=== PATIENT | female | born 1940 | race Hispanic/Latino ===

== ENCOUNTER 2017-02-10 02:33 | Observation (INO) | payer MEDICARE ==
[2017-02-10] MEDS ORDERED: Sodium Chloride 0.9% 1,000 ML IV SCH (03:15)
[2017-02-10 03:27] LABS: BASO % 0.5 % (0.0-2.0); EOS % 0.3 % (0.0-4.0); HEMATOCRIT 50.5 % (34.0-47.0); LYMPH # 1.7 K/uL (1.0-4.3); LYMPH % 25.2 % (20.0-40.0); MEAN CELL VOLUME 84.3 fl (81.0-99.0); MEAN CORPUSCULAR HEMOGLOBIN 27.3 pg (27.0-31.0); MEAN CORPUSCULAR HGB CONC 32.4 g/dL (33.0-37.0); MEAN PLATELET VOLUME 10.9 fl (7.2-11.7); MONO # 1.1 K/uL (0.0-0.8); MONO % 16.7 % (0.0-10.0); NEUT # 3.9 K/uL (1.8-7.0); NEUT % 57.3 % (50.0-75.0); NRBC % 0.3 % (0.0-0.0); RED CELL DISTRIBUTION WIDTH 15.9 % (11.5-14.5); WHITE BLOOD COUNT 6.9 K/uL (4.8-10.8)
[2017-02-10 03:34] LABS: BLOOD UREA NITROGEN 19 mg/dl (7-17); CALCIUM 8.8 mg/dL (8.4-10.2); CARBON DIOXIDE 23 mmol/L (22-30); CHLORIDE 103 mmol/L (98-107); GFR AFRICAN-AMERICAN > 60; GLUCOSE,RANDOM 110 mg/dL (65-105); SODIUM 142 mmol/l (132-148)
--- NOTE | 2017-02-10 03:39 | ED PDOC ---
HPI: General Adult Time Seen by Provider: 02/10/17 02:43 Chief Complaint (Nursing): Cough, Cold, Congestion Chief Complaint (Provider): cough, body aches, diarrhea History Per: Patient History/Exam Limitations: no limitations Onset/Duration Of Symptoms: Days Have you had recent travel within the past 21 days to any of the following countries: [place], [place], [place] or [place]?: No Current Symptoms Are (Timing): Still Present Additional Complaint(s): 76yo female presents to the ED, brought by daughter, with multiple symptoms including dry cough, body aches, and diarrhea. Patient reports dry cough began a couple days ago with body aches for a few days. Notes she has hx of fibromyalgia and aches in shoulder and back are consistent with this. Patient states when she coughs she subsequently has diarrhea and has had over 10 episodes. Reports feeling dehydrated as well. Denies n/v, fevers, chills. States she has smoked 2 packs of cigarettes per day for the past 60 years and has not seen her PCP in 15 years. Past Medical History Reviewed: Historical Data, Nursing Documentation, Vital Signs Vital Signs: Last Vital Signs Temp 98.1 F 02/10/17 06:37 Pulse 89 02/10/17 06:37 Resp 20 02/10/17 06:37 BP 137/56 L 02/10/17 06:37 Pulse Ox 100 02/10/17 06:37 - Medical History PMH: Fibromyalgia - Surgical History Surgical History: Cholecystectomy - Family History Family History: States: No Known Family Hx - Social History Current smoker - smoking cessation education provided: Yes - Home Medications Home Medications: Ambulatory Orders Medication Instructions Recorded No Known Home Med 02/10/17 - Allergies Allergies/Adverse Reactions: Allergies Allergy/AdvReac Type Severity Reaction Status Date / Time ibuprofen Allergy RASH Verified 02/10/17 02:44 Review of Systems ROS Statement: Except As Marked, All Systems Reviewed And Found Negative Constitutional: Positive for: Other (body aches, dehydration ). Negative for: Fever, Chills Respiratory: Positive for: Cough Gastrointestinal: Positive for: Diarrhea. Negative for: Nausea, Vomiting Physical Exam - Reviewed Nursing Documentation Reviewed: Yes Vital Signs Reviewed: Yes - Physical Exam Appears: Positive for: Well, No Acute Distress Head Exam: Positive for: ATRAUMATIC, NORMAL INSPECTION, NORMOCEPHALIC Skin: Positive for: Normal Color, Warm, Dry Eye Exam: Positive for: Normal appearance, EOMI, PERRL ENT: Positive for: Normal ENT Inspection Neck: Positive for: Normal, Painless ROM, Supple Cardiovascular/Chest: Positive for: Regular Rate, Rhythm. Negative for: Murmur , Tachycardia Respiratory: Positive for: Decreased Breath Sounds (mild b/l ). Negative for: Wheezing, Respiratory Distress Gastrointestinal/Abdominal: Positive for: Normal Exam, Bowel Sounds, Soft. Negative for: Tenderness Back: Positive for: Normal Inspection. Negative for: L CVA Tenderness, R CVA Tenderness Extremity: Positive for: Normal ROM. Negative for: Deformity, Swelling Neurologic/Psych: Positive for: Alert, Oriented - Laboratory Results Result Diagrams: 02/10/17 03:23 02/10/17 03:23 - ECG O2 Sat by Pulse Oximetry: 100 Pulse Ox Interpretation: Normal (RA) Medical Decision Making Medical Decision Makin: Impression: pneumonia vs. bronchitis with possible dehydration Plan: BNP, BMP, troponin, CBC Urinalysis CXR Morphine 2mg IVP, IVF reassess 0634: Patient remains persistently hypoxic despite multiple nebulizer treatments. Patient also flu positive. Will admit for hypoxia and wait for CT angio chest results prior to admission. Scribe Attestation: Documented by Joselyn Gupta acting as a scribe for Leno Estevez MD. Provider Scribe Attestation: All medical record entries made by the Scribe were at my direction and personally dictated by me. I have reviewed the chart and agree that the record accurately reflects my personal performance of the history, physical exam, medical decision making, and the department course for this patient. I have also personally directed, reviewed, and agree with the discharge instructions and disposition. Disposition - Clinical Impression Clinical Impression: Hypoxia - Patient ED Disposition Is Patient to be Admitted: Yes - Disposition Disposition Time: 06:34 Condition: STABLE - Pt Status Changed To: Hospital Disposition Of: Observation - POA Present On Arrival: None
[2017-02-10] MEDS ORDERED: Albuterol-Ipratrop 3 mg / 0.5 (3 ml) UD INH STA ×2 (04:04→04:48)
[2017-02-10] MEDS ORDERED: Albuterol-Ipratrop 3 mg / 0.5 (3 ml) UD ONE (04:42)
[2017-02-10 05:42] LABS: VENOUS BLOOD GAS BASE EXCESS -16.2 mmol/L (0.0-2.0); VENOUS BLOOD GAS PCO2 105 mmHg (40-60); VENOUS BLOOD PH 6.87 (7.32-7.43)
[2017-02-10 05:57] LABS: ABG ALLEN TEST YES; ARTERIAL BLOOD GAS HCO3 22.5 mmol/L (21-28); ARTERIAL BLOOD GAS MODE 2L NC; ARTERIAL BLOOD GAS PO2 64 mm/Hg (80-100)
[2017-02-10] MEDS ORDERED: Iodixanol 320 MG/ML 100 ML BOTTLE IV ONE (05:59)
[2017-02-10] MEDS ORDERED: Sodium Chloride 0.9% 50 ML IV ONE (05:59)
--- NOTE | 2017-02-10 06:57 | CT ---
EXAM: CT Angiography Chest With Intravenous Contrast CLINICAL HISTORY: 76 years old, female; Signs and symptoms; Other: Hypoxia; Additional info: Hypoxic, smoker, R/O pe TECHNIQUE: Axial computed tomographic angiography images of the chest with intravenous contrast using pulmonary embolism protocol. MIP reconstructed images were created and reviewed. Coronal and sagittal reformatted images were created and reviewed. CONTRAST: 95 mL of [id number] administered intravenously. EXAM DATE/TIME: 02/10/2017 5:42 AM COMPARISON: CR - CHEST TWO VIEWS (PA/LAT) 02/10/2017 3:45:25 AM FINDINGS: Pulmonary arteries: No evidence of pulmonary embolism. Aorta: No thoracic aortic aneurysm or dissection. Lungs: 9.5 mm noncalcified subpleural nodule is anterior segment left lower lobe. Sub-solid 4 mm nodule anterior segment right lower lobe (one image 57, sagittal 49 and axial 86) Pleural space: Unremarkable. No significant effusion. No pneumothorax. Heart: Unremarkable. No cardiomegaly. No significant pericardial effusion. No evidence of RV dysfunction. Bones/joints: No acute fracture. Soft tissues: Unremarkable. Lymph nodes: Few AP window, lower mediastinal and bilateral hilar nodes averaging 1 cm. IMPRESSION: 1. No evidence of pulmonary embolism. 2. Noncalcified 9.5 mm nodule left lower lobe and sub-solid nodule of 4 mm right to lower lobe. Fleischner Society guidelines for lung nodules greater than 8-mm: 3, 9, and 24 months follow-up or PET/CT.
--- NOTE | 2017-02-10 08:21 | RAD ---
HISTORY: cough, smoker COMPARISON: No prior. TECHNIQUE: Chest PA and lateral FINDINGS: LUNGS: No active pulmonary disease. Suspicious for 6-7 millimeter nodule at the left lower lung. PLEURA: No significant pleural effusion identified. No pneumothorax apparent. CARDIOVASCULAR: Normal. OSSEOUS STRUCTURES: No significant abnormalities. VISUALIZED UPPER ABDOMEN: Normal. OTHER FINDINGS: None. IMPRESSION: No radiographic evidence of acute pulmonary disease. Suspicious for 7 millimeter nodule at the left lower lung.
[2017-02-10] MEDS ORDERED: Enoxaparin 40 mg Syringe SC SCH (09:00)
[2017-02-10] MEDS ORDERED: Pneumococcal 23-Valent Vaccine IM ONE (11:37)
[2017-02-10] MEDS ORDERED: Albuterol-Ipratrop 3 mg / 0.5 (3 ml) UD INH SCH (12:00)
[2017-02-10 12:53] VITALS: BP 126/72; PULSE 73; RESP 18; TEMP 98.5; O2SAT 92
--- NOTE | 2017-02-10 16:04 | CP.PCM.HP ---
History of Present Illness - History of Present Illness History of Present Illness: CC: Cough. 76 y/o F, came to ER [facility] to be evaluated for cough, onset 5 days [employer] with no relief. Pt was evaluated in ED due to progressive Dry cough associated to heavy smoker ( 2PPD x 60 yrs), Pt stated she quit a week ago 2nd to SOB. Worsening symptoms : Body ache, increasing pain with cough, moderate 7:10, multiple episodes of diarrhea that started day [employer], feeling dehydrated. Aggravated factor: SOB on exertion, not following with PMD x 15 years. Pt denied: Bloody cough, productive cough, fever, chills, n/v, dizziness, CP, urinary symptoms, sick contact, recent travel. PMHx: Fibromyalgia, chronic shoulders and back pain On eval in ER, Pt found + for Flu B. CT Chest: No PE. Noncalcified nodule LLL, sub-solid nodule RLL. Present on Admission - Present on Admission Any Indicators Present on Admission: No Review of Systems - Constitutional Constitutional: Other (negative) - EENT Eyes: Requires Corrective Lenses Ears: Other (negative) Nose/Mouth/Throat: Other (negative) - Cardiovascular Cardiovascular: Other (negative) - Respiratory Respiratory: Cough, Dyspnea on Exertion - Gastrointestinal Gastrointestinal: Diarrhea - Genitourinary Genitourinary: Other (negative) - Musculoskeletal Musculoskeletal: Arthralgias - Integumentary Integumentary: Other (negative) - Neurological Neurological: Other (negative) - Psychiatric Psychiatric: Other (negative) - Endocrine Endocrine: Other (negative) - Hematologic/Lymphatic Hematologic: Other (negative) Past Patient History - Past Medical History & Family History Past Medical History?: Yes Pertinent Family History: Unknown - Past Social History Smoking Status: Heavy Smoker > 10 Cigarettes Daily Alcohol: None Drugs: Denies Home Situation {Lives}: With Family - CARDIAC Hx Cardiac Disorders: No - PULMONARY Hx Respiratory Disorders: Yes - NEUROLOGICAL Hx Neurological Disorder: No - HEENT Hx HEENT Problems: No - RENAL Hx Chronic Kidney Disease: No - ENDOCRINE/METABOLIC Hx Endocrine Disorders: No - HEMATOLOGICAL/ONCOLOGICAL Hx Blood Disorders: No - INTEGUMENTARY Hx Dermatological Problems: No - MUSCULOSKELETAL/RHEUMATOLOGICAL Hx Musculoskeletal Disorders: Yes Hx Back Pain: Yes Hx Falls: No Other/Comment: Fibromyalagia - GASTROINTESTINAL Hx Gastrointestinal Disorders: No - GENITOURINARY/GYNECOLOGICAL Hx Genitourinary Disorders: No - PSYCHIATRIC Hx Psychophysiologic Disorder: No Hx Substance Use: No - SURGICAL HISTORY Hx Surgeries: Yes Hx Cholecystectomy: Yes Hx Hysterectomy: Yes - ANESTHESIA Hx Anesthesia: Yes Hx Anesthesia Reactions: No Meds Home Medications: Home Medication List Medication Instructions Recorded Confirmed Type Albuterol/Ipratropium [Combivent 1 puff IH BID #1 inhaler 02/10/17 Rx Respimat] Oseltamivir [Tamiflu Cap] 75 mg PO BID #6 cap 02/10/17 Rx Allergies/Adverse Reactions: Allergies Allergy/AdvReac Type Severity Reaction Status Date / Time ibuprofen Allergy RASH Verified 02/10/17 02:44 Physical Exam - Constitutional Appears: No Acute Distress - Head Exam Head Exam: NORMAL INSPECTION - Eye Exam Eye Exam: PERRL - ENT Exam ENT Exam: Normal Oropharynx - Neck Exam Neck exam: Positive for: Normal Inspection - Respiratory Exam Respiratory Exam: Decreased Breath Sounds (mild) - Cardiovascular Exam Cardiovascular Exam: REGULAR RHYTHM - GI/Abdominal Exam GI & Abdominal Exam: Normal Bowel Sounds, Soft - Extremities Exam Extremities exam: Positive for: normal inspection - Back Exam Back exam: NORMAL INSPECTION - Neurological Exam Neurological exam: Alert, Oriented x3 Additional comments: Confused at times. No focal motor sensory deficit. - Psychiatric Exam Psychiatric exam: Normal Mood - Skin Skin Exam: Warm Results - Vital Signs Recent Vital Signs: Last Vital Signs Temp 98.5 F 02/10/17 12:00 Pulse 73 02/10/17 12:00 Resp 18 02/10/17 12:00 BP 126/72 02/10/17 12:00 Pulse Ox 92 L 02/10/17 12:00 reviewed J.P. - Labs Result Diagrams: 02/10/17 03:23 02/10/17 03:23 Labs: reviewed J.P. - Imaging and Cardiology Chest x-ray Status: Report reviewed by me (Christo) CT scan - chest Status: Report reviewed by me (Christo) Assessment & Plan (1) Influenza B Status: Acute Priority: High (2) Cough Status: Acute (3) Lung nodules Status: Acute Priority: High - Assessment and Plan (Free Text) Plan: Continue Tamiflu, Duoneb, Lovenox and rest of Tx. - Date & Time Date: 02/10/17 Time: 08:20
--- NOTE | 2017-02-17 10:30 | CP.PCM.DIS ---
Provider - Provider Date of Admission: 02/10/17 06:13 Attending physician: Edson Morrow MD Time Spent in preparation of Discharge (in minutes): 25 Diagnosis - Discharge Diagnosis (1) Lung nodules Status: Acute Priority: High (2) Influenza B Status: Acute Priority: High (3) Cough Status: Acute Hospital Course - Lab Results Lab Results: Most Recent Lab Values WBC 6.9 K/uL (4.8-10.8) 02/10/17 03:23 RBC 5.99 Mil/uL (3.80-5.20) H 02/10/17 03:23 Hgb 16.3 g/dL (12.0-16.0) H 02/10/17 03:23 Hct 50.5 % (34.0-47.0) H 02/10/17 03:23 MCV 84.3 fl (81.0-99.0) 02/10/17 03:23 MCH 27.3 pg (27.0-31.0) 02/10/17 03:23 MCHC 32.4 g/dL (33.0-37.0) L 02/10/17 03:23 RDW 15.9 % (11.5-14.5) H 02/10/17 03:23 Plt Count 147 K/uL (130-400) 02/10/17 03:23 MPV 10.9 fl (7.2-11.7) 02/10/17 03:23 Neut % (Auto) 57.3 % (50.0-75.0) 02/10/17 03:23 Lymph % (Auto) 25.2 % (20.0-40.0) 02/10/17 03:23 Jerauld % (Auto) 16.7 % (0.0-10.0) H 02/10/17 03:23 Eos % (Auto) 0.3 % (0.0-4.0) 02/10/17 03:23 Baso % (Auto) 0.5 % (0.0-2.0) 02/10/17 03:23 Neut # 3.9 K/uL (1.8-7.0) 02/10/17 03:23 Lymph # 1.7 K/uL (1.0-4.3) 02/10/17 03:23 Jerauld # 1.1 K/uL (0.0-0.8) H 02/10/17 03:23 Eos # 0.0 K/uL (0.0-0.7) 02/10/17 03:23 Baso # 0.0 K/uL (0.0-0.2) 02/10/17 03:23 pCO2 49 mm/Hg (35-45) H 02/10/17 05:54 pO2 64 mm/Hg (80-100) L 02/10/17 05:54 HCO3 22.5 mmol/L (21-28) 02/10/17 05:54 ABG pH 7.30 (7.35-7.45) L 02/10/17 05:54 ABG Total CO2 25.6 mmol/L (22-28) 02/10/17 05:54 ABG O2 Saturation 95.0 % (95-98) 02/10/17 05:54 ABG Base Excess -2.8 mmol/L (-2.0-3.0) L 02/10/17 05:54 Anival Test Yes 02/10/17 05:54 ABG Potassium 3.3 mmol/L (3.6-5.2) L 02/10/17 05:54 VBG pH 6.87 (7.32-7.43) L* 02/10/17 05:35 VBG pCO2 105 mmHg (40-60) H* 02/10/17 05:35 VBG HCO3 10.7 mmol/L 02/10/17 05:35 VBG Total CO2 22.4 mmol/L (22-28) 02/10/17 05:35 VBG O2 Sat (Calc) 61.7 % (40-65) 02/10/17 05:35 VBG Base Excess -16.2 mmol/L (0.0-2.0) L 02/10/17 05:35 A-a O2 Difference 74.0 mm/Hg 02/10/17 05:54 Sodium 132.0 mmol/L (132-148) 02/10/17 05:54 Chloride 103.0 mmol/L (98-107) 02/10/17 05:54 Glucose 124 mg/dL (65-105) H 02/10/17 05:54 Lactate 0.9 mmol/L (0.7-2.1) 02/10/17 05:54 Vent Mode 2l nc 02/10/17 05:54 FiO2 28.0 % 02/10/17 05:54 Crit Value Called To Md brian jones 02/10/17 05:35 Crit Value Called By Luz Maria 02/10/17 05:54 Crit Value Read Back Y 02/10/17 05:35 Blood Gas Notified Time 555 02/10/17 05:54 Sodium 142 mmol/l (132-148) 02/10/17 03:23 Potassium 4.0 MMOL/L (3.6-5.0) 02/10/17 03:23 Chloride 103 mmol/L (98-107) 02/10/17 03:23 Carbon Dioxide 23 mmol/L (22-30) 02/10/17 03:23 Anion Gap 20 (10-20) 02/10/17 03:23 BUN 19 mg/dl (7-17) H 02/10/17 03:23 Creatinine 0.8 mg/dL (0.7-1.2) 02/10/17 03:23 Est GFR ( Amer) > 60 02/10/17 03:23 Est GFR (Non-Af Amer) > 60 02/10/17 03:23 Random Glucose 110 mg/dL (65-105) H 02/10/17 03:23 Calcium 8.8 mg/dL (8.4-10.2) 02/10/17 03:23 Troponin I < 0.0120 ng/mL (0.00-0.120) 02/10/17 03:23 NT-Pro-B Natriuret Pep 150 pg/ml (0-900) 02/10/17 03:23 Arterial Blood Potassium 3.3 mmol/L (3.6-5.2) L 02/10/17 05:54 Influenza Typ A,B (EIA) Pos for influenza b (NEGATIVE) H 02/10/17 05:45 - Date & Time of H&P Date of H&P: 02/10/17 Time of H&P: 08:20 Discharge Exam - Head Exam Head Exam: NORMAL INSPECTION Discharge Plan - Discharge Medications Prescriptions: Albuterol/Ipratropium [Combivent Respimat] 1 puff IH BID #1 inhaler RX: Oseltamivir [Tamiflu Cap] 75 mg PO BID #6 cap - Follow Up Plan Condition: STABLE Disposition: HOME/ ROUTINE Patient education suggested?: Yes Instructions: COPD (Chronic Obstructive Pulmonary Disease) (DC) Additional Instructions: patient cleared for discharge to Home today by pt wishes to f/u with outpatient Rx for tamiflu/ combivent provided Referrals: Alek Vela MD [Staff Provider] - Edson Morrow MD [Staff Provider] -
== END 2017-02-10 16:20 | disposition home or self-care (01) ==
LOC: H.ER 02:33 → H.ERHOLD 06:13 → H.TEL 08:16
PROVIDERS: ADMIT Internal Medicine Pulmonary Disease; ATTEND Internal Medicine Pulmonary Disease
DX: M79.7 Fibromyalgia (principal); J10.1 Influenza due to other identified influenza virus with other respiratory manifestations; Z90.49 Acquired absence of other specified parts of digestive tract; E86.0 Dehydration; R09.02 Hypoxemia; Z23 Encounter for immunization; F17.210 Nicotine dependence, cigarettes, uncomplicated; Z90.710 Acquired absence of both cervix and uterus; R91.1 Solitary pulmonary nodule
CPT/HCPCS: 71020; 71275; 80048; 82803; 83880; 84484; 85025; 87804; 90732; 96374; 99285; G0009; G0378; J2270; J7040; Q9967

== ENCOUNTER 2017-02-16 03:05 | Observation (INO) | payer MEDICARE ==
[2017-02-16] MEDS ORDERED: DiphenhydrAMINE 50 mg/ml Inj ONE ×2 (03:16→06:13)
[2017-02-16 03:38] VITALS: BMI 32.2
[2017-02-16] MEDS ORDERED: DiphenhydrAMINE 50 mg/ml Inj IVP STA ×2 (03:38→06:16)
[2017-02-16 03:41] VITALS: BP 101/64; PULSE 89; RESP 16; TEMP 98; O2SAT 95
[2017-02-16] MEDS ORDERED: Albuterol 0.083% Inhal Sol (2.5 mg/3 mL) UD ONE ×2 (03:47→03:57)
[2017-02-16] MEDS ORDERED: Albuterol 0.083% Inhal Sol (2.5 mg/3 mL) UD INH STA (03:56)
--- NOTE | 2017-02-16 04:19 | ED PDOC ---
HPI: Allergic Reaction Time Seen by Provider: 02/16/17 03:16 Chief Complaint (Nursing): Allergic Reaction Chief Complaint (Provider): allergic reaction History Per: Patient History/Exam Limitations: no limitations Onset/Duration Of Symptoms: Hrs Current Symptoms Are (Timing): Still Present Additional Complaint(s): 76yo female presents to the ED for evaluation of diffuse hives all over body. Patient unsure of what caused hives, but possibly [place]ia. Hives have been spreading throughout since morning and patient took Benadryl but did not want to take too much as she thought they would give more in ED. Denies throat swelling or SOB. Reports wheezing, however notes she has this chronically and is not worse now. Past Medical History Reviewed: Historical Data, Nursing Documentation, Vital Signs Vital Signs: Last Vital Signs Temp 98.0 F 02/16/17 03:38 Pulse 89 02/16/17 03:38 Resp 16 02/16/17 03:38 BP 101/64 02/16/17 03:38 Pulse Ox 95 02/16/17 03:38 - Medical History PMH: Fibromyalgia Denies: Chronic Kidney Disease - Surgical History Surgical History: Cholecystectomy - Family History Family History: States: No Known Family Hx - Home Medications Home Medications: Ambulatory Orders Medication Instructions Recorded Albuterol/Ipratropium [Combivent 1 puff IH BID #1 inhaler 02/10/17 Respimat] Oseltamivir [Tamiflu Cap] 75 mg PO BID #6 cap 02/10/17 DiphenhydrAMINE [Benadryl] 25 mg PO Q8H PRN 5 Days 02/16/17 predniSONE [predniSONE Tab] 20 mg PO BID 5 Days 02/16/17 - Allergies Allergies/Adverse Reactions: Allergies Allergy/AdvReac Type Severity Reaction Status Date / Time albuterol sulfate Allergy RASH Verified 02/16/17 05:18 [From Combivent] ibuprofen Allergy RASH Verified 02/10/17 02:44 ipratropium bromide Allergy RASH Verified 02/16/17 05:18 [From Combivent] Review of Systems ROS Statement: Except As Marked, All Systems Reviewed And Found Negative ENT: Negative for: Throat Swelling Respiratory: Positive for: Wheezing (chronic ). Negative for: Shortness of Breath Skin: Positive for: Other (diffuse hives all over body ) Physical Exam - Reviewed Nursing Documentation Reviewed: Yes Vital Signs Reviewed: Yes - Physical Exam Appears: Positive for: Well, No Acute Distress Head Exam: Positive for: ATRAUMATIC, NORMAL INSPECTION, NORMOCEPHALIC Skin: Positive for: Warm, Dry, Rash (diffuse hives throughout skin all over body ) Eye Exam: Positive for: Normal appearance, EOMI, PERRL ENT: Positive for: Pharynx Is (clear ), Other (no uvula swelling). Negative for : Pharyngeal Erythema Neck: Positive for: Normal, Painless ROM, Supple Cardiovascular/Chest: Positive for: Regular Rate, Rhythm. Negative for: Murmur , Tachycardia Respiratory: Positive for: Wheezing (mild b/l ). Negative for: Respiratory Distress Gastrointestinal/Abdominal: Positive for: Normal Exam, Bowel Sounds, Soft. Negative for: Tenderness Back: Positive for: Normal Inspection Extremity: Positive for: Normal ROM. Negative for: Deformity, Swelling Neurologic/Psych: Positive for: Alert, Oriented - Laboratory Results Result Diagrams: 02/16/17 05:10 02/16/17 05:21 - ECG O2 Sat by Pulse Oximetry: 95 Pulse Ox Interpretation: Normal - Progress ED Course And Treament: Scribe Attestation: Documented by Joselyn Hughes acting as a scribe for Leno Estevez MD. Provider Scribe Attestation: All medical record entries made by the Scribe were at my direction and personally dictated by me. I have reviewed the chart and agree that the record accurately reflects my personal performance of the history, physical exam, medical decision making, and the department course for this patient. I have also personally directed, reviewed, and agree with the discharge instructions and disposition. - Critical Care Total Time (In Min): 60 Documented Critical Care: Time excludes all time spent performint seperately billable procedures ED OBSERVATION Date of observation admission: 02/16/17 Time of observation admission: 06:27 - Progress Note Progress Note: 0330: Impression: allergic reaction Plan: albuterol 2.5mg INH, benadryl 50mg IVP, pepcid 20mg IVP, solu-medrol 125mg IVP reassess 0700 Patient s/o to Dr. Stockton pending XRs and relief of urticaria. Disposition - Clinical Impression Clinical Impression: Allergic reaction - Patient ED Disposition Is Patient to be Admitted: Transfer of Care - Disposition Disposition: Transfer of Care Disposition Time: 07:00 Condition: STABLE Patient Signed Over To: Mirza Stockton Handoff Comments: pending XRs and relief of urticaria
[2017-02-16] MEDS ORDERED: Sodium Chloride 0.9% 1,000 ML IV STA (04:57)
[2017-02-16] MEDS ORDERED: EPINEPHrine 1 mg/ml (1:1000) Inj IM ONE (04:58)
[2017-02-16 05:27] LABS: BASO # 0.2 K/uL (0.0-0.2); BASO % 1.7 % (0.0-2.0); EOS # 0.7 K/uL (0.0-0.7); EOS % 5.4 % (0.0-4.0); LYMPH # 2.6 K/uL (1.0-4.3); LYMPH % 20.3 % (20.0-40.0); MEAN CELL VOLUME 84.2 fl (81.0-99.0); MEAN CORPUSCULAR HEMOGLOBIN 27.1 pg (27.0-31.0); MEAN CORPUSCULAR HGB CONC 32.2 g/dL (33.0-37.0); MEAN PLATELET VOLUME 10.7 fl (7.2-11.7); MONO # 1.1 K/uL (0.0-0.8); MONO % 8.5 % (0.0-10.0); NEUT # 8.1 K/uL (1.8-7.0); NEUT % 64.1 % (50.0-75.0); RED CELL DISTRIBUTION WIDTH 15.2 % (11.5-14.5); WHITE BLOOD COUNT 12.6 K/uL (4.8-10.8)
[2017-02-16 05:36] LABS: BLOOD UREA NITROGEN 9 mg/dl (7-17); CALCIUM 9.3 mg/dL (8.4-10.2); CARBON DIOXIDE 25 mmol/L (22-30); CHLORIDE 103 mmol/L (98-107); GFR AFRICAN-AMERICAN > 60; GLUCOSE,RANDOM 113 mg/dL (65-105); POTASSIUM 4.7 MMOL/L (3.6-5.0); SODIUM 145 mmol/l (132-148)
[2017-02-16] MEDS ORDERED: Sodium Chloride 0.9% 1,000 ML IV SCH (06:30)
--- NOTE | 2017-02-16 07:34 | ED PDOC ---
- Laboratory Results Result Diagrams: 02/16/17 05:10 02/16/17 05:21 - ECG O2 Sat by Pulse Oximetry: 95 (RA) Pulse Ox Interpretation: Normal - Radiology X-Ray: Interpreted by Me, Viewed By Me X-Ray Interpretation: No Acute Disease - Progress ED Course And Treament: 848: Stable. AAOx3. Symptoms improving. Will rx prednisone and benadryl. WBC mild elevation from allergic reaction likely. FU pcp. Medical Decision Making Medical Decision Makin signed over to me by Joselyn Estevez MD pending reassessment, XR. Disposition - Clinical Impression Clinical Impression: Allergic reaction - POA Present On Arrival: None - Disposition Disposition: Routine/Home Disposition Time: 08:49 Condition: STABLE ED OBSERVATION Date of observation admission: 02/16/17 Time of observation admission: 06:27 Additional Comments - Additional Comments Additional Comments: Scribe Attestation: Documented by Fredi Shepherd acting as a scribe for Jacques Stockton MD. Provider Scribe Attestation: All medical record entries made by the Scribe were at my direction and personally dictated by me. I have reviewed the chart and agree that the record accurately reflects my personal performance of the history, physical exam, medical decision making, and the department course for this patient. I have also personally directed, reviewed, and agree with the discharge instructions and disposition.
--- NOTE | 2017-02-16 11:35 | RAD ---
PROCEDURE: CHEST RADIOGRAPH, 1 VIEW HISTORY: sob COMPARISON: 02/10/2017 FINDINGS: LUNGS: Clear. PLEURA: No pneumothorax or pleural fluid seen. CARDIOVASCULAR: Normal. OSSEOUS STRUCTURES: No significant abnormalities. VISUALIZED UPPER ABDOMEN: Normal. OTHER FINDINGS: None. IMPRESSION: No active disease.
--- NOTE | 2017-02-16 11:50 | RAD ---
PROCEDURE: Radiographs of the Sacrum and Coccyx HISTORY: s/p fall COMPARISON: None available. TECHNIQUE: Frontal and lateral views of the sacrum and coccyx FINDINGS: BONES: There is cortical step-off in the lower sacrum seen only in the lateral projection. This is concerning for sacral fracture. Consider further evaluation with computed tomography with reformats. No other fracture identified. No lytic or blastic osseous lesion. SACROILIAC JOINTS: Unremarkable. OTHER FINDINGS: None. IMPRESSION: Possible nondisplaced fracture of the inferior sacrum. Consider further evaluation with computed tomography. This finding was discussed by telephone with FELICIA Hernandez at 11:48 a.m. on 02/16/2017.
== END 2017-02-16 08:50 | disposition home or self-care (01) ==
LOC: H.ER 03:05 → H.EROBSV 06:27
PROVIDERS: ADMIT Emergency Medicine; ATTEND Emergency Medicine
DX: L50.0 Allergic urticaria (principal); M79.7 Fibromyalgia
CPT/HCPCS: 71010; 72220; 80048; 85025; 96372; 96374; 96375; 96376; 99282; G0378; J0171; J1200; J2930; J7040